=== PATIENT | female | born 1995 | race Caucasian/White ===

== ENCOUNTER → 2019-09-01 | Outpatient (CLI) | payer BC ==
[2019-09-01 15:46] LABS: HEMATOCRIT 37.8 % (36.0-47.0); HEMOGLOBIN 12.7 g/dL (12.0-15.5); RED BLOOD COUNT 4.54 x10^6/uL (3.50-5.40); RED CELL DISTRIBUTION WIDTH 14.9 % (11.5-14.5); WHITE BLOOD COUNT 9.8 x10^3/uL (4.0-11.0)
== END | disposition home or self-care (01) ==
LOC: LAB 15:20
PROVIDERS: ATTEND Obstetrics & Gynecology
DX: Z34.91 Encounter for supervision of normal pregnancy, unspecified, first trimester (principal)
CPT/HCPCS: 36415; 85027; 86592; 86703; 86762; 86787; 86803; 86850; 86900; 86901; 87340

== ENCOUNTER 2020-03-21 05:56 | Inpatient (IN) | payer BC ==
[~2020-03-21] VITALS: Ht 170.2 cm; Wt 69.9 kg
[2020-03-21] MEDS ORDERED: TERBUTALINE 1 MG/ML VIAL. SQ PRN (06:00)
[2020-03-21] MEDS ORDERED: OXYTOCIN 30 UNIT/500 ML PREMIX 500 ML IV PRN ×3 (06:00→16:00)
[2020-03-21] MEDS ORDERED: 0.9 % SODIUM CHLORIDE 10 ML DISP.SYRIN. IV PRN ×2 (06:00→16:00)
[2020-03-21] MEDS ORDERED: BUTORPHANOL 2 MG/ML VIAL. IVP PRN ×2 (06:00)
[2020-03-21] MEDS ORDERED: LIDOCAINE 1% PF 30 ML VIAL. INJ PRN (06:00)
[2020-03-21] MEDS: IV RINGERS,LACTATED 1000ML 1,000 ML IV SCH ×4 (06:25→14:37)
[2020-03-21] MEDS ORDERED: ACETAMINOPHEN 325 MG TABLET. PO PRN ×2 (06:45→16:00)
[2020-03-21 07:15] LABS: BASO % 0 % (0-3); EOS # 0.1 x10^3/uL (0.0-0.7); EOS % 1 % (0-3); HEMATOCRIT 32.5 % (36.0-47.0); HEMOGLOBIN 10.4 g/dL (12.0-15.5); LYMPH # 1.8 x10^3/uL (1.0-4.8); LYMPH % 15 % (24-48); MEAN CORPUSCULAR HEMOGLOBIN 24 pg (25-35); MEAN CORPUSCULAR HGB CONC 32 g/dL (31-37); MEAN CORPUSCULAR VOLUME 76 fL (79-100); MONO # 0.7 x10^3/uL (0.0-1.1); MONO % 6 % (0-9); NEUT # 9.4 x10^3/uL (1.8-7.7); NEUT % 78 % (31-73); PLATELET COUNT 235 x10^3/uL (140-400); RED BLOOD COUNT 4.26 x10^6/uL (3.50-5.40); RED CELL DISTRIBUTION WIDTH 18.4 % (11.5-14.5)
[2020-03-21 07:26] VITALS: BP 114/69
[2020-03-21 08:07] LABS: BILIRUBIN,URINE NEGATIVE (NEG); CLARITY,URINE CLOUDY; COLOR,URINE YELLOW; NITRITE,URINE NEGATIVE (NEG); PROTEIN,URINE NEGATIVE (NEG-TRACE); UROBILINOGEN,URINE 0.2 mg/dL (0.2 mg/dL)
[2020-03-21 08:39] LABS: AMORPHOUS SEDIMENT,UR PRESENT /HPF; BACTERIA,URINE FEW /HPF (0-FEW); RBC,URINE OCC /HPF (0-2); SQUAMOUS EPITHELIAL CELL,UR OCC /LPF; WBC,URINE OCC /HPF (0-4)
--- NOTE | 2020-03-21 09:20 | PDOC1 ---
[employer] [facility] H&P Date of Admission: Date of Admission: Mar 21, 2020 at 05:56 History of Present Illness: EDC: 03/19/20 LMP: 06/19/19 HPI: The pt is a 25y @ 40.2 by 12wk u/s who presents to L&D for indxn of labor. She has had a relatively uncomplicated . She has had very few ctxs prior to the indxn. At her last visit she had a mild range BP. All of her BPs during this admission have been nml. PMH: Denies PSH: Appy Meds: PNV, Fe OBHx: 1 x TSVD SH: no tob, no EtOH FH: noncontributory Medications: Meds: Current Medications Medications (Trade) Dose Ordered Sig/Venessa Route PRN Reason Start Time Stop Time Status Last Admin Dose Admin Ringer's Solution 1,000 ml @ 125 mls/hr Q8H IV 03/21/20 05:59 03/21/20 06:25 Oxytocin/Sodium Chloride 500 ml @ 0 mls/hr CONT PRN IV SEE I/O RECORD 03/21/20 06:00 03/21/20 06:25 Allergies: Coded Allergies: amoxicillin (Verified Allergy, Intermediate, 03/21/20) Physical Exam: Vital Signs: Vital Signs Date Time Temp Pulse Resp B/P (MAP) Pulse Ox O2 Delivery O2 Flow Rate FiO2 03/21/20 07:26 97.9 115 20 114/69 (84) 97.9 PE: GENERAL: No apparent distress. Alert and oriented. HEENT: Head normocephalic, atraumatic. NECK: Supple LUNGS: Clear to auscultation. HEART: RRR, S1, S2 present, pulses intact ABDOMEN: Soft, positive bowel sounds. EXTREMITIES: No cyanosis or edema. NEUROLOGIC: Normal speech, normal tone PSYCHIATRIC: Normal affect, normal mood. SKIN: No ulceration. FHT: 120s + acels/no decels/mLTV [place]: 2-3 min SVE: 2-3/80/-2 Labs: Laboratory Tests Test 03/21/20 06:30 White Blood Count 12.0 x10^3/uL (4.0-11.0) H Red Blood Count 4.26 x10^6/uL (3.50-5.40) Hemoglobin 10.4 g/dL (12.0-15.5) L Hematocrit 32.5 % (36.0-47.0) L Mean Corpuscular Volume 76 fL (79-100) L Mean Corpuscular Hemoglobin 24 pg (25-35) L Mean Corpuscular Hemoglobin Concent 32 g/dL (31-37) Red Cell Distribution Width 18.4 % (11.5-14.5) H Platelet Count 235 x10^3/uL (140-400) Neutrophils (%) (Auto) 78 % (31-73) H Lymphocytes (%) (Auto) 15 % (24-48) L Monocytes (%) (Auto) 6 % (0-9) Eosinophils (%) (Auto) 1 % (0-3) Basophils (%) (Auto) 0 % (0-3) Neutrophils # (Auto) 9.4 x10^3/uL (1.8-7.7) H Lymphocytes # (Auto) 1.8 x10^3/uL (1.0-4.8) Monocytes # (Auto) 0.7 x10^3/uL (0.0-1.1) Eosinophils # (Auto) 0.1 x10^3/uL (0.0-0.7) Basophils # (Auto) 0.0 x10^3/uL (0.0-0.2) Urine Collection Type Unknown Urine Color Yellow Urine Clarity Cloudy Urine pH 7.0 (<5.0-8.0) Urine Specific [place] 1.015 (1.000-1.030) Urine Protein Negative mg/dL (NEG-TRACE) Urine Glucose (UA) Negative mg/dL (NEG) Urine Ketones (Stick) Negative mg/dL (NEG) Urine Blood Negative (NEG) Urine Nitrite Negative (NEG) Urine Bilirubin Negative (NEG) Urine Urobilinogen Dipstick 0.2 mg/dL (0.2 mg/dL) Urine Leukocyte Esterase Negative (NEG) Urine RBC Occ /HPF (0-2) Urine WBC Occ /HPF (0-4) Urine Squamous Epithelial Cells Occ /LPF Urine Amorphous Sediment Present /HPF Urine Bacteria Few /HPF (0-FEW) Urine Mucus Slight /LPF Laboratory Tests 03/21/20 06:30 Laboratory Tests 03/21/20 06:30 Assessment & Plan: A/P 25y @ 40.2 by 12wk u/s 1.) Indxn on 8U of Pit 2.) Large subchorionic hematoma - resolved 3.) Amoxicillin All 4.) Earl NI 5.) Anemia - on Fe BID 6.) TDAP given 01/26/20 7.) Fetus cat I FHT, vtx 8.) GBS neg 9.) Girl: MICHELLE Smith MD Mar 21, 2020 09:20
--- NOTE | 2020-03-21 11:48 | PDOC ---
[employer] PROGRESS NOTE Date of Service: DATE: 03/21/20 TIME: 11:47 Subjective: Pt feeling ctx's Objective: Vital Signs: Vital Signs Date Time Temp Pulse Resp B/P (MAP) Pulse Ox O2 Delivery O2 Flow Rate FiO2 03/21/20 07:26 97.9 115 20 114/69 (84) 97.9 Vital Signs Date Time Temp Pulse Resp B/P (MAP) Pulse Ox O2 Delivery O2 Flow Rate FiO2 03/21/20 07:26 97.9 115 20 114/69 (84) 97.9 Labs: Laboratory Tests Test 03/21/20 06:30 White Blood Count 12.0 x10^3/uL (4.0-11.0) H Red Blood Count 4.26 x10^6/uL (3.50-5.40) Hemoglobin 10.4 g/dL (12.0-15.5) L Hematocrit 32.5 % (36.0-47.0) L Mean Corpuscular Volume 76 fL (79-100) L Mean Corpuscular Hemoglobin 24 pg (25-35) L Mean Corpuscular Hemoglobin Concent 32 g/dL (31-37) Red Cell Distribution Width 18.4 % (11.5-14.5) H Platelet Count 235 x10^3/uL (140-400) Neutrophils (%) (Auto) 78 % (31-73) H Lymphocytes (%) (Auto) 15 % (24-48) L Monocytes (%) (Auto) 6 % (0-9) Eosinophils (%) (Auto) 1 % (0-3) Basophils (%) (Auto) 0 % (0-3) Neutrophils # (Auto) 9.4 x10^3/uL (1.8-7.7) H Lymphocytes # (Auto) 1.8 x10^3/uL (1.0-4.8) Monocytes # (Auto) 0.7 x10^3/uL (0.0-1.1) Eosinophils # (Auto) 0.1 x10^3/uL (0.0-0.7) Basophils # (Auto) 0.0 x10^3/uL (0.0-0.2) Urine Collection Type Unknown Urine Color Yellow Urine Clarity Cloudy Urine pH 7.0 (<5.0-8.0) Urine Specific [place] 1.015 (1.000-1.030) Urine Protein Negative mg/dL (NEG-TRACE) Urine Glucose (UA) Negative mg/dL (NEG) Urine Ketones (Stick) Negative mg/dL (NEG) Urine Blood Negative (NEG) Urine Nitrite Negative (NEG) Urine Bilirubin Negative (NEG) Urine Urobilinogen Dipstick 0.2 mg/dL (0.2 mg/dL) Urine Leukocyte Esterase Negative (NEG) Urine RBC Occ /HPF (0-2) Urine WBC Occ /HPF (0-4) Urine Squamous Epithelial Cells Occ /LPF Urine Amorphous Sediment Present /HPF Urine Bacteria Few /HPF (0-FEW) Urine Mucus Slight /LPF Laboratory Tests 03/21/20 06:30 Laboratory Tests 03/21/20 06:30 Physical Exam: GENERAL: No apparent distress. Alert and oriented. HEENT: Head normocephalic, atraumatic. NECK: Supple LUNGS: Clear to auscultation. HEART: RRR, S1, S2 present, pulses intact ABDOMEN: Soft, positive bowel sounds. EXTREMITIES: No cyanosis or edema. NEUROLOGIC: Normal speech, normal tone PSYCHIATRIC: Normal affect, normal mood. SKIN: No ulceration. FHT: 120's +acels/no decels/mLTV [place]: 1-2 min SVE: 3/80/-3 Assessment & Plan: A/P 25y @ 40.2 by 12wk u/s 1.) Indxn on 16U of Pit, AROM/cl 2.) Large subchorionic hematoma - resolved 3.) Amoxicillin All 4.) Earl NI 5.) Anemia - on Fe BID 6.) TDAP given 01/26/20 7.) Fetus cat I FHT, vtx 8.) GBS neg 9.) Girl: MICHELLE Smith MD Mar 21, 2020 11:48
[2020-03-21] MEDS ORDERED: L&D EPIDURAL SYRINGE 50 ML ONE (12:41)
[2020-03-21] MEDS ORDERED: ROPIVacaine 0.2% PF 10 ML VIAL. ONE ×2 (12:41→13:00)
[2020-03-21] MEDS ORDERED: L&D EPIDURAL 50 ML SYRINGE. ONE (13:00)
[2020-03-21] MEDS ORDERED: IV RINGERS,LACTATED 1000ML 1,000 ML IV SCH (13:16)
[2020-03-21] MEDS ORDERED: fentaNYL PF VIAL 100 MCG/2 ML VIAL EPID PRN (13:30)
[2020-03-21] MEDS ORDERED: L&D EPIDURAL SYRINGE 50 ML EPID PRN (13:30)
[2020-03-21] MEDS ORDERED: NALOXONE 0.4 MG/ML VIAL. IV PRN (13:30)
--- NOTE | 2020-03-21 15:57 | PDOC ---
VAGINAL DELIVERY DATE DATE: 03/21/20 TIME: 15:56 TIME Patient delivered a viable female over intact perineum at 1544. Wt 7lb 10.9oz. Apgars 9/9. Placenta delivered spontaneously, intact with 3VC. 2nd degree laceration repaired in usual fashion with 30 vicryl. Good hemostasis noted. 20 U of Pit given with IVF. EBL 300cc. WEIGHT Weight [ ] MICHELLE CLARK MD Mar 21, 2020 15:57
[2020-03-21] MEDS ORDERED: MMR per PROTOCOL. MC PRN (16:00)
[2020-03-21] MEDS ORDERED: HYDROCORTISONE 1% TOPICAL OINTMENT 30GM TUBE. TP PRN (16:00)
[2020-03-21] MEDS ORDERED: PHENYLEPH/MINERAL OIL/PETROLAT RECTAL OINTMENT TUBE. RC PRN (16:00)
[2020-03-21] MEDS ORDERED: TDaP (Adacel) per PROTOCOL. MC PRN (16:00)
[2020-03-21] MEDS ORDERED: oxyCODONE/APAP 5/325 1 TAB TABLET PO PRN (16:00)
[2020-03-21] MEDS ORDERED: DOCUSATE SODIUM 100 MG CAPSULE. PO PRN (16:00)
[2020-03-21] MEDS ORDERED: IBUPROFEN 400 MG TABLET. PO PRN (16:00)
[2020-03-21] MEDS ORDERED: ZOLPIDEM 5 MG TABLET. PO PRN (16:00)
[2020-03-21] MEDS ORDERED: diphenhydrAMINE HCL 25 MG CAPSULE PO PRN (16:00)
[2020-03-21] MEDS ORDERED: MAG HYDROX/ALUMINUM HYD/SIMETH 30 ML ORAL.SUSP PO PRN (16:00)
[2020-03-21] MEDS ORDERED: MAGNESIUM HYDROXIDE 2,400 MG/30 ML ORAL.SUSP. PO PRN (16:00)
[2020-03-21] MEDS ORDERED: BENZOCAINE 20% TOPICAL AEROSOL SPRAY 57GM CAN. TP PRN (16:00)
[2020-03-21] MEDS ORDERED: SIMETHICONE 80 MG TAB.CHEW PO PRN (16:00)
[2020-03-21 19:10] VITALS: BP 116/73
[2020-03-21] MEDS ORDERED: IV NORMAL SALINE 1000ML BAG 1,000 ML IV SCH (19:16)
[2020-03-22 01:00] VITALS: BP 126/86
[2020-03-22] MEDS: IBUPROFEN 400 MG TABLET. PO PRN ×2 (03:09→08:54)
[2020-03-22 05:21] VITALS: BP 110/69
[2020-03-22 05:58] LABS: HEMATOCRIT 29.8 % (36.0-47.0); HEMOGLOBIN 9.6 g/dL (12.0-15.5)
[2020-03-22 07:33] VITALS: BP 123/83
[2020-03-22] MEDS: FERROUS SULFATE 325 MG TABLET. PO SCH ×2 (08:54→17:23)
[2020-03-22] MEDS ORDERED: IBUP-1060 PO (08:56)
[2020-03-22] MEDS ORDERED: DOCU-109 PO (08:56)
[2020-03-22] MEDS ORDERED: FERR325T14 PO (08:56)
[2020-03-22] MEDS ORDERED: PRENATAL MULTIVITAMIN TABLET. PO SCH (09:00)
--- NOTE | 2020-03-22 09:15 | PDOC ---
MANAGER [employer] PROGRESS NOTE Date of Service: DATE: 03/22/20 TIME: 09:14 Subjective: Pt with good pain control. Vinayak PO. Voiding. Minimal lochia. Objective: Vital Signs: Vital Signs Date Time Temp Pulse Resp B/P (MAP) Pulse Ox O2 Delivery O2 Flow Rate FiO2 03/21/20 07:26 97.9 115 20 114/69 (84) 97.9 03/21/20 19:10 96 Room Air Vital Signs Date Time Temp Pulse Resp B/P (MAP) Pulse Ox O2 Delivery O2 Flow Rate FiO2 03/22/20 07:33 97.9 74 20 123/83 (96) 98 Room Air 97.9 Labs: Laboratory Tests Test 03/22/20 04:50 Hemoglobin 9.6 g/dL (12.0-15.5) L Hematocrit 29.8 % (36.0-47.0) L Mean Corpuscular Hemoglobin Concent 32 g/dL (31-37) Laboratory Tests 03/22/20 04:50 Laboratory Tests 03/22/20 04:50 Physical Exam: GENERAL: No apparent distress. Alert and oriented. HEENT: Head normocephalic, atraumatic. NECK: Supple LUNGS: Clear to auscultation. HEART: RRR, S1, S2 present, pulses intact ABDOMEN: Soft, positive bowel sounds. EXTREMITIES: No cyanosis or edema. NEUROLOGIC: Normal speech, normal tone PSYCHIATRIC: Normal affect, normal mood. SKIN: No ulceration. FFNT below umb no C/C/E Assessment & Plan: A/P 25y PPD #1 s/p 1.) PP doing well 2.) Amoxicillin All 3.) Earl NI 4.) Anemia Hgb 10.4 -> 9.6, on Fe BID 5.) TDAP given 01/26/20 6.) Girl: Theodora 7.) Cont PP care MICHELLE CLARK MD Mar 22, 2020 09:15
--- NOTE | 2020-03-22 09:58 | DS ---
DATE OF DISCHARGE: 03/22/2020 DATE OF DISCHARGE: 03/22/2020 ADMISSION DIAGNOSES: 1. Intrauterine at 40 weeks and 2 days by 12-week ultrasound. 2. Induction of labor. 3. Large subchorionic hematoma, resolved. 4. AMOXICILLIN ALLERGY. 5. Varicella nonimmune. 6. Anemia. 7. Group B Streptococcus negative. DISCHARGE DIAGNOSES: 1. Intrauterine at 40 weeks and 2 days by 12-week ultrasound. 2. Induction of labor. 3. Large subchorionic hematoma, resolved. 4. AMOXICILLIN ALLERGY. 5. Varicella nonimmune. 6. Anemia. 7. Group B Streptococcus negative. PROCEDURE: Spontaneous vaginal delivery. BRIEF HOSPITAL COURSE: The patient is a 25-year-old 2, para 1-0-0-1, at 40 weeks and 2 days by 12-week ultrasound, who presented to Labor and Delivery for induction of labor. The patient had had a relatively uncomplicated . The patient had had very few contractions at that point prior to the induction. At her last visit, she had a mild range blood pressure, but on admission, her blood pressures were found to be all normal. The patient was started on Pitocin. Around 11:30, the patient's membranes were artificially ruptured and later that afternoon around 4:00, the patient delivered by vaginal delivery, see delivery note for full detail. By day #1, the patient was meeting all discharge criteria and desired discharge home. Of note, the patient had hemoglobin of 10.4 on admission and had dropped to 9.6 after delivery. DISCHARGE INSTRUCTIONS: The patient was told not to lift anything greater than 20 pounds, have pelvic rest for 6 weeks. CALL IF: The patient was to call if she had fevers, chills, nausea, vomiting, abdominal pain or any additional questions or concerns. FOLLOWUP APPOINTMENT: The patient was to follow up on 05/03/2019 at 1:15 p.m. for a visit. DISCHARGE MEDICATIONS: The patient was given a prescription for Motrin 800 mg 30 pills, Colace 100 mg 30 pills and ferrous sulfate 325 mg 30 pills. MICHELLE CLARK MD DR: EDWARD/sirisha JOB#: [id number] / [id number]
[2020-03-22 12:55] VITALS: BP 114/76
[2020-03-22 18:45] VITALS: BP 116/78
--- NOTE | 2020-03-22 18:50 | NUR ---
Discharge and follow up instructions reviewed and given to pt along with Rx's. Pt ambulated out of the hospital with staff and her by her side. Infant was placed securely in the back seat of the vehicle in a rear facing position.
== END 2020-03-22 18:50 | disposition home or self-care (01) | DRG 807 ==
LOC: 3 SO LND 05:56 → 3 NORTH 18:50
PROVIDERS: ADMIT Obstetrics & Gynecology; ATTEND Obstetrics & Gynecology
PROC: 10E0XZZ Delivery of Products of Conception, External Approach (ICD-10-PCS; principal; 2020-03-21)
PROC: 0KQM0ZZ Repair Perineum Muscle, Open Approach (ICD-10-PCS; 2020-03-21)
PROC: 10907ZC Drainage of Amniotic Fluid, Therapeutic from Products of Conception, Via Natural or Artificial Opening (ICD-10-PCS; 2020-03-21)
PROC: 3E033VJ Introduction of Other Hormone into Peripheral Vein, Percutaneous Approach (ICD-10-PCS; 2020-03-21)
DX: O99.02 Anemia complicating childbirth (principal); Z37.0 Single live birth; D64.9 Anemia, unspecified; Z3A.40 40 weeks gestation of pregnancy; Z88.0 Allergy status to penicillin; O71.89 Other specified obstetric trauma; O70.1 Second degree perineal laceration during delivery
CPT/HCPCS: 36415; 81001; 85014; 85018; 85025; 86592; 86850; 86900; 86901; J2590; J2795; J3010; J7120; G0378